=== PATIENT | female | born 1985 | race Caucasian/White ===

== ENCOUNTER 2017-01-15 19:06 | Emergency (ER) | payer SELFPAY ==
[~2017-01-15] VITALS: Ht 165.1 cm; Wt 50.3 kg
[~2017-01-15 19:06] MED LIST: BUDE0.5A3 NEB
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
[2017-01-15] MEDS ORDERED: IOHEXOL 300 MG/ML 75 ML VIAL IV ONE (20:00)
[2017-01-15 20:12] LABS: BASO % 0 % (0-3); EOS % 0 % (0-3); HEMATOCRIT 36.7 % (36.0-47.0); HEMOGLOBIN 11.5 g/dL (12.0-15.5); LYMPH % 8 % (24-48); MEAN CORPUSCULAR HEMOGLOBIN 25 pg (25-35); MEAN CORPUSCULAR HGB CONC 31 g/dL (31-37); MEAN CORPUSCULAR VOLUME 79 fL (79-100); MONO % 5 % (0-9); NEUT % 87 % (31-73); PLATELET COUNT 306 x10^3/uL (140-400); RED BLOOD COUNT 4.67 x10^6/uL (3.50-5.40); RED CELL DISTRIBUTION WIDTH 15.8 % (11.5-14.5); WHITE BLOOD COUNT 12.5 x10^3/uL (4.0-11.0)
[2017-01-15 20:25] LABS: CALCIUM 9.3 mg/dL (8.5-10.1); CREATININE 0.6 mg/dL (0.6-1.0); GFR 118.2
[2017-01-15 20:27] LABS: INR 1.1 (0.8-1.1); PROTHROMBIN TIME PATIENT 13.3 SEC (11.7-14.0)
[2017-01-15 20:30] LABS: MAGNESIUM 2.4 mg/dL (1.8-2.4)
[2017-01-15 20:36] LABS: BARBITURATES NEG (NEG); BENZODIAZEPINES POS (NEG); CANNABINOIDS POS (NEG); COCAINE NEG (NEG); ETHANOL, URINE NEG (NEG); METHADONE NEG (NEG); OPIATES POS (NEG); PHENCYCLIDINE NEG (NEG)
[2017-01-15 20:38] LABS: CKMB INDEX 0.7 % (0-4); CKMB MASS 0.8 ng/mL (0.0-3.6)
[2017-01-15 20:41] LABS: BILIRUBIN,URINE NEGATIVE (NEG); GLUCOSE,URINE NEGATIVE (NEG); NITRITE,URINE NEGATIVE (NEG); PH,URINE 5.5; PROTEIN,URINE NEGATIVE (NEG-TRACE); UROBILINOGEN,URINE 0.2 mg/dL (0.2 mg/dL)
[2017-01-15 20:44] LABS: BACTERIA,URINE FEW /HPF (0-FEW)
[2017-01-15 20:45] LABS: SQUAMOUS EPITHELIAL CELL,UR FEW /LPF
[2017-01-15 21:20] LABS: PLT ESTIMATE ADEQUATE (ADEQUATE)
[2017-01-15 21:22] LABS: ANISOCYTOSIS SLIGHT; HYPOCHROMIA SLIGHT; POIKILOCYTOSIS SLIGHT
[2017-01-15 21:23] LABS: OVALOCYTES FEW; TEAR DROP CELLS OCC
[2017-01-15] MEDS ORDERED: CONTRAST GIVEN MC PRN (21:30)
[2017-01-15] MEDS ORDERED: MORPHINE SULFATE 10 MG/ML VIAL. IV ONE (21:30)
[2017-01-15 22:00] VITALS: BP 133/90
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
--- NOTE | 2017-01-16 08:05 | RAD ---
Exam performed: One view chest. Indication: chest pain Date of Service: 01/15/2017 9:23 PM Comparison: None available. Single AP upright portable view chest findings: Cardiomediastinal silhouette is within limits of normal. No acute infiltrates, effusion or pneumothorax is detected. The bony structures are normal. Impression: No acute cardiopulmonary process is detected.
--- NOTE | 2017-01-16 11:06 | EKG ---
[facility] [address] [place] [address] Test Date: 2017-01-15 Test Time: 19:21:01 Pat Name: ALL GAN Department: Room: Gender: F Manufacturing Technologist: : 1985 Requested By: CECELIA HORAN Order Number: [id number] Reading MD: Measurements Intervals [place] Rate: 89 P: 53 ID: [id number] QRS: 67 QRSD: 76 T: 54 QT: 330 QTc: 407 Interpretive Statements SINUS RHYTHM ATRIAL PREMATURE COMPLEX(ES) LEFT ATRIAL ABNORMALITY QRS(T) CONTOUR ABNORMALITY CONSIDER ANTEROLATERAL MYOCARDIAL DAMAGE RI6.01 Unconfirmed report No previous ECG available for comparison
== END 2017-01-15 23:05 | disposition home or self-care (01) ==
LOC: ER 19:06 → EEVIPCON 19:06 → ER 23:05
DX: R07.9 Chest pain, unspecified (principal); F11.10 Opioid abuse, uncomplicated; R00.0 Tachycardia, unspecified; I10 Essential (primary) hypertension; Z91.030 Bee allergy status; Y04.8XXA Assault by other bodily force, initial encounter; Y93.89 Activity, other specified; Y92.89 Other specified places as the place of occurrence of the external cause; Y99.8 Other external cause status
CPT/HCPCS: 36415; 71010; 71275; 80048; 81001; 81025; 82550; 82553; 83735; 83880; 84443; 84484; 85007; 85027; 85379; 85610; 93005; 96374; 99285; G0481; J2270; Q9967